=== PATIENT | female | born 1985 | race African-American/Black ===

== ENCOUNTER 2018-10-22 12:44 | Emergency (ER) | payer MEDICAID ==
[~2018-10-22] VITALS: Ht 165.1 cm; Wt 73.0 kg
[2018-10-22] MEDS ORDERED: AMOXICILLIN 500 MG CAPSULE PO ONE (14:00)
[2018-10-22] MEDS ORDERED: ACETAMINOPHEN WITH CODEINE 300/30MG TABLET PO ONE (14:00)
[2018-10-22 14:10] VITALS: BP 113/75
[2018-10-22] MEDS ORDERED: IBUPROFEN 600MG TABLET PO ONE (14:15)
== END 2018-10-22 14:16 | disposition home or self-care (01) ==
LOC: ER 12:44
DX: K08.89 Other specified disorders of teeth and supporting structures (principal); R03.0 Elevated blood-pressure reading, without diagnosis of hypertension
CPT/HCPCS: 99283

== ENCOUNTER 2018-12-21 08:51 | Emergency (ER) | payer MEDICAID ==
[~2018-12-21] VITALS: Ht 165.1 cm; Wt 88.0 kg
[2018-12-21] MEDS ORDERED: HYDROCODONE/ACETAMINOPHEN 5/325MG TABLET PO ONE (10:30)
[2018-12-21 11:31] VITALS: BP 107/65
== END 2018-12-21 11:32 | disposition home or self-care (01) ==
LOC: ER 08:51
DX: G44.209 Tension-type headache, unspecified, not intractable (principal); K08.89 Other specified disorders of teeth and supporting structures; F12.10 Cannabis abuse, uncomplicated; Z98.890 Other specified postprocedural states
CPT/HCPCS: 99282

== ENCOUNTER 2019-11-11 12:56 | Emergency (ER) | payer MEDICAID ==
[~2019-11-11] VITALS: Ht 165.1 cm; Wt 79.0 kg
[2019-11-11 14:17] VITALS: BP 121/67
== END 2019-11-11 14:18 | disposition home or self-care (01) ==
LOC: ER 12:56
DX: L73.8 Other specified follicular disorders (principal); F12.10 Cannabis abuse, uncomplicated; Z98.890 Other specified postprocedural states
CPT/HCPCS: 99283

== ENCOUNTER 2020-06-09 10:42 | Emergency (ER) | payer MEDICAID ==
[~2020-06-09] VITALS: Ht 165.1 cm; Wt 77.0 kg
[2020-06-09] MEDS ORDERED: IBUP-2029 PO (11:04)
[2020-06-09] MEDS ORDERED: AMOX-494 PO (11:04)
[2020-06-09 11:13] VITALS: BP 108/65
== END 2020-06-09 11:14 | disposition home or self-care (01) ==
LOC: ER 10:42
DX: J02.9 Acute pharyngitis, unspecified (principal); R59.0 Localized enlarged lymph nodes; J35.1 Hypertrophy of tonsils; F12.10 Cannabis abuse, uncomplicated
CPT/HCPCS: 99283

== ENCOUNTER 2021-06-18 08:58 | Emergency (ER) | payer MEDICAID ==
[~2021-06-18] VITALS: Ht 162.6 cm; Wt 91.0 kg
[~2021-06-18 08:58] MED LIST: AMOX-494 PO; IBUP-2029 PO
[2021-06-18] MEDS ORDERED: MORPHINE SULFATE 4 MG/ML CPJ (NOT FOR IM USE) IV ONE (09:15)
[2021-06-18] MEDS ORDERED: KETOROLAC 30MG/ML VIAL IV ONE (09:15)
[2021-06-18 09:30] LABS: BASOPHILS % 0.9 % (0.0-2.0); EOSINOPHILS % 1.8 % (0.0-5.0); HEMATOCRIT. 34.6 % (36.0-48.0); HEMOGLOBIN. 11.3 g/dL (12.0-16.0); LYMPHOCYTES % 10.6 % (20.0-50.0); MEAN CORPUSCULAR HEMOGLOBIN 26.7 pg (28.0-32.0); MEAN CORPUSCULAR VOLUME 81.8 fL (81.0-99.0); MEAN PLATELET VOLUME 9.2 fl (7.4-10.4); NEUTROPHILS % 82.7 % (40.0-76.0); PLATELET 270 x1000/uL (130-400); RED BLOOD CELL COUNT 4.23 mill/uL (4.2-5.4); RED CELL DISTRIBUTION WIDTH 16.6 % (11.6-14.6)
[2021-06-18 09:32] LABS: CHLORIDE 113 mEq/L (98-107)
[2021-06-18 09:42] LABS: B-HCG QUANTITATIVE < 1 mIU/mL (<3)
[2021-06-18 10:13] VITALS: BP 140/80
[2021-06-18] MEDS ORDERED: IBUP-2030 PO (11:34)
== END 2021-06-18 12:09 | disposition home or self-care (01) ==
LOC: ER 08:58
DX: D25.9 Leiomyoma of uterus, unspecified (principal); F12.10 Cannabis abuse, uncomplicated; Z98.890 Other specified postprocedural states
CPT/HCPCS: 36415; 76830; 76856; 80053; 84702; 85025; 86850; 86900; 86901; 96374; 96375; 99284; J1885; J2270